=== PATIENT | male | born 1945 | race Caucasian/White ===

== ENCOUNTER 2017-04-08 16:19 | Emergency (ER) | payer MEDICARE, OTHER ==
[~2017-04-08] VITALS: Ht 165.1 cm; Wt 79.0 kg
[2017-04-08 16:51] VITALS: BP 169/91; PULSE 107; RESP 19; TEMP 99; O2SAT 93
[2017-04-08] MEDS ORDERED: CLON1 PO (16:55)
--- NOTE | 2017-04-08 17:28 | PD ---
HPI Chief Complaint: Psychiatric Symptoms Time Seen by Provider: 17:27 Travel History International Travel<30 days: No Contact w/Intl Traveler<30days: No Traveled to known affect area: No History of Present Illness HPI 71-year-old male presents to the emergency department under Becerra act by law enforcement. Per the report of loss enforcement officers "Mark expressed he wanted to drink himself to ." The patient says that he did not say this statement at all. He says the officer told him that he was going to drink himself to if he continued to drink and then he wrote it down on the paper stating that he set up. The patient denies suicidal or homicidal ideations. Denies illicit drug use. Has no current medical complaints. Denies chest pain, shortness of breath, abdominal pain, nausea, vomiting, fevers. Admits to drinking 3 [employer] hard lemonade today. Says he's been drinking for the past 2 weeks. Denies pain. No known relieving or aggravating factors. No known allergies. No other modifying factors or associated signs and symptoms. PFSH Past Medical History Anxiety: Yes (ptsd) Influenza Vaccination: Yes Past Surgical History Surgical History: No Previous Surgery Social History Alcohol Use: Yes (binge drinking 1/2 gallon per day of vodka) Tobacco Use: No Substance Use: No Allergies-Medications (Allergen,Severity, Reaction): Coded Allergies: No Known Allergies (Verified Allergy, Unknown, 04/08/17) Reported Meds & Prescriptions Reported Meds & Active Scripts Active Reported Klonopin (Clonazepam) 1 Mg Tab 1 Mg PO QID Review of Systems Except as stated in HPI: all other systems reviewed are Neg Physical Exam Narrative GENERAL: Well-nourished, well-developed male patient, in no acute distress; smells of EtOH; appears intoxicated SKIN: Warm and dry. HEAD: Atraumatic. Normocephalic. EYES: Pupils equal and round. ENT: Mucosa pink and moist. NECK: Supple. Trachea midline. CARDIOVASCULAR: Regular rate and rhythm. No murmur appreciated. RESPIRATORY: No accessory muscle use. Clear to auscultation. Breath sounds equal bilaterally. GASTROINTESTINAL: Abdomen soft, non-tender, nondistended. Hepatic and splenic margins not palpable. Bowel sounds are active 4 quadrants. MUSCULOSKELETAL: No obvious deformities. No clubbing. No cyanosis. No edema. NEUROLOGICAL: Awake and alert. Oriented 3. No obvious cranial nerve deficits. Motor grossly within normal limits. Normal speech. Moves all extremities. 5/5 strength to all extremities. PSYCHIATRIC: No delusional thought processes. No hallucinations. Data Data Last Documented VS Vital Signs Date Time Temp Pulse Resp B/P (MAP) Pulse Ox O2 Delivery O2 Flow Rate FiO2 04/08/17 16:51 99.0 107 19 169/91 (117) 93 Room Air Orders Orders Complete Blood Count With Diff (04/08/17 17:28) Comprehensive Metabolic Panel (04/08/17 17:28) Psych Screen (04/08/17 17:28) Drug Screen, Random Urine (04/08/17 17:28) Alcohol (Ethanol) (04/08/17 17:28) Salicylates (Aspirin) (04/08/17 17:28) Tylenol (Acetaminophen) (04/08/17 17:28) MDM Medical Decision Making Medical Screen Exam Complete: Yes Emergency Medical Condition: Yes Medical Record Reviewed: Yes Differential Diagnosis Medical clearance for psychiatric admission, alcohol intoxication, alcohol- induced mood disorder Narrative Course Patient presents under a Becerra act. Physical examination and vital signs are essentially unremarkable. Patient has no medical complaints to report. Psych screen has been ordered. If the laboratory results are unremarkable, the patient will be medically cleared for psychiatric evaluation and disposition. Diagnosis Primary Impression: Medical clearance for psychiatric admission Condition: Stable Nhi Savage Apr 08, 2017 17:28
[2017-04-08 19:01] VITALS: BP 134/62; PULSE 87; RESP 18; O2SAT 95
[2017-04-08 19:05] LABS: AUTOMATED NEUTROPHIL # 5.5 TH/MM3 (1.8-7.7); BASOPHIL # 0.1 TH/MM3 (0-0.2); BASOPHIL % 1.1 % (0.0-2.0); EOSINOPHIL # 0.1 TH/MM3 (0-0.4); EOSINOPHIL % 0.8 % (0.0-4.0); HEMATOCRIT 54.6 % (39.0-51.0); HEMOGLOBIN 17.9 GM/DL (13.0-17.0); LYMPHOCYTE # 2.7 TH/MM3 (1.0-4.8); MEAN CELL VOLUME 96.4 FL (80.0-100.0); MEAN CORPUSCULAR HEMOGLOBIN 31.6 PG (27.0-34.0); MEAN CORPUSCULAR HGB CONC 32.8 % (32.0-36.0); MEAN PLATELET VOLUME 7.2 FL (7.0-11.0); MONO % 16.5 % (0.0-8.0); MONOCYTE # 1.7 TH/MM3 (0-0.9); NEUT % 54.6 % (16.0-70.0); PLATELET COUNT 363 TH/MM3 (150-450); RED BLOOD COUNT 5.66 MIL/MM3 (4.50-5.90); RED CELL DISTRIBUTION WIDTH 14.2 % (11.6-17.2); WHITE BLOOD COUNT 10.1 TH/MM3 (4.0-11.0)
[2017-04-08 19:24] LABS: ALT (GPT) 45 U/L (12-78)
[2017-04-08 19:25] LABS: ALBUMIN 3.7 GM/DL (3.4-5.0); AST (GOT) 56 U/L (15-37); BICARBONATE 23.6 MEQ/L (21.0-32.0); BLOOD UREA NITROGEN 25 MG/DL (7-18); CALCIUM 8.4 MG/DL (8.5-10.1); CHLORIDE 101 MEQ/L (98-107); CREATININE 1.51 MG/DL (0.60-1.30); GLOMERULAR FILTRATION RATE 46 ML/MIN (>89); GLUCOSE,RANDOM 94 MG/DL (74-106); SODIUM (NA) 139 MEQ/L (136-145)
[2017-04-08 19:27] LABS: ALKALINE PHOSPHATASE 50 U/L (45-117); TOTAL BILIRUBIN ADULT 0.7 MG/DL (0.2-1.0); TOTAL PROTEIN 6.9 GM/DL (6.4-8.2)
[2017-04-08 19:28] LABS: ACETAMINOPHEN LESS THAN 2.0 MCG/ML (10.0-30.0)
--- NOTE | 2017-04-08 20:24 | PD ---
Physical Exam Narrative I, Dr. Agustin, have reviewed the advance practice practitioner's documentation and am in agreement, met with the patient face to face, made the diagnosis, and the medical decision making was done by me. *My assessment and Findings: Alcohol intoxication 71yo M was brought in as Becerra Act because he said he wanted to drink himself to . Pt denies this. He is currently clinically sober and ambulating without assistance. Pt is not tremulous and not in withdrawal. He wants to go home. Denies any suicidal or homicidal ideations. Denies any hallucinations or complaints. No signs of trauma. Exam unremarkable. Labs reviewed, no leukocytosis. BUN/creatinine mildly elevated at 25/1.51 and pt can follow up with primary care physician regarding this. AST elevated from chronic alcohol use. No abdominal pain on exam. Blood alcohol 220 and this was 3 hours ago. Becerra Act is lifted because I do not feel that pt is a threat to himself or others at this time. He lives with his and is going home. Return precautions given. Data Data Last Documented VS Vital Signs Date Time Temp Pulse Resp B/P (MAP) Pulse Ox O2 Delivery O2 Flow Rate FiO2 04/08/17 20:27 04/08/17 19:01 87 18 95 Room Air 04/08/17 16:51 99.0 Orders Orders Complete Blood Count With Diff (04/08/17 17:28) Comprehensive Metabolic Panel (04/08/17 17:28) Alcohol (Ethanol) (04/08/17 17:28) Salicylates (Aspirin) (04/08/17 17:28) Tylenol (Acetaminophen) (04/08/17 17:28) Thiamine (Vit B1) (Vitamin B1) (04/08/17 20:30) Ed Discharge Order (04/08/17 20:26) Labs Laboratory Tests Test 04/08/17 17:30 White Blood Count 10.1 TH/MM3 Red Blood Count 5.66 MIL/MM3 Hemoglobin 17.9 GM/DL Hematocrit 54.6 % Mean Corpuscular Volume 96.4 FL Mean Corpuscular Hemoglobin 31.6 PG Mean Corpuscular Hemoglobin Concent 32.8 % Red Cell Distribution Width 14.2 % Platelet Count 363 TH/MM3 Mean Platelet Volume 7.2 FL Neutrophils (%) (Auto) 54.6 % Lymphocytes (%) (Auto) 27.0 % Monocytes (%) (Auto) 16.5 % Eosinophils (%) (Auto) 0.8 % Basophils (%) (Auto) 1.1 % Neutrophils # (Auto) 5.5 TH/MM3 Lymphocytes # (Auto) 2.7 TH/MM3 Monocytes # (Auto) 1.7 TH/MM3 Eosinophils # (Auto) 0.1 TH/MM3 Basophils # (Auto) 0.1 TH/MM3 CBC Comment DIFF FINAL Differential Comment Blood Urea Nitrogen 25 MG/DL Creatinine 1.51 MG/DL Random Glucose 94 MG/DL Total Protein 6.9 GM/DL Albumin 3.7 GM/DL Calcium Level 8.4 MG/DL Alkaline Phosphatase 50 U/L Aspartate Amino Transf (AST/SGOT) 56 U/L Alanine Aminotransferase (ALT/SGPT) 45 U/L Total Bilirubin 0.7 MG/DL Sodium Level 139 MEQ/L Potassium Level 4.5 MEQ/L Chloride Level 101 MEQ/L Carbon Dioxide Level 23.6 MEQ/L Anion Gap 14 MEQ/L Estimat Glomerular Filtration Rate 46 ML/MIN Salicylates Level LESS THAN 1.7 MG/DL Acetaminophen Level LESS THAN 2.0 MCG/ML Ethyl Alcohol Level 220 MG/DL MDM Supervised Visit with RK: Yes Diagnosis Primary Impression: Alcohol abuse Patient Instructions: General Instructions Departure Forms: Tests/Procedures Additional Instruction: Your creatinine is a little elevated at 1.51 today, please follow up with your primary care physician regarding this. Please return to the ED if your symptoms worsen. Med/Other Pt SpecificInfo: No Change to Meds Disposition: 01 DISCHARGE HOME Condition: Stable Zara Agustin Apr 08, 2017 20:24
[2017-04-08] MEDS ORDERED: THIAMINE HCL 100 MG TAB PO ONE (20:30)
== END 2017-04-08 20:37 | disposition home or self-care (01) ==
LOC: NEDAMB 16:19 → NEPD 20:37
DX: F10.129 Alcohol abuse with intoxication, unspecified (principal); Y90.7 Blood alcohol level of 200-239 mg/100 ml; Z79.899 Other long term (current) drug therapy
CPT/HCPCS: 80053; 80307; 85025; 99283